=== PATIENT | female | born 1955 | race African-American/Black ===

== ENCOUNTER 2017-07-13 00:21 | Emergency (ER) | payer OTHER ==
[~2017-07-13] VITALS: Ht 165.1 cm; Wt 78.0 kg
[~2017-07-13 00:21] MED LIST: ASPI81TA82 PO; BACT800T5 PO; CEPH500C3 PO; ENAL5TAB PO; IRON18TA2 PO; VITA250L PO; ZOCO40TA PO
[2017-07-13 00:23] VITALS: BP 177/84; PULSE 94; RESP 16; TEMP 98.7; O2SAT 98
--- NOTE | 2017-07-13 02:02 | PD ---
HPI Chief Complaint: Flank/Kidney Pain Time Seen by Provider: 01:59 Travel History International Travel<30 days: No Contact w/Intl Traveler<30days: No Traveled to known affect area: No History of Present Illness HPI LEFT FLANK PAIN, RADIATING DOWN TO LEFT GROIN AREA, [place]ARP, 8/10, ONSET 4 DAYS AGO, WORSENING TONIGHT OVER PAST 1HR OR SO....DENIES FEVER/FREQUENCY/DYSURIA/ HEMATURIA PCP : CAN'T RECALL BUT IT WAS A [facility] DOCTOR ALL: NKDA PSHX: HYST, APPY PMHX: HTN PFSH Past Medical History Hx Anticoagulant Therapy: Yes (ASA) Cardiovascular Problems: Yes (HTN, [place]) High Cholesterol: Yes Chest Pain: Yes Cerebrovascular Accident: Yes Diminished Hearing: No Hypertension: Yes Seizures: Yes Menopausal: Yes Ovarian Cysts: Yes (MULTIPLE SX FOR CYSTS) Past Surgical History Appendectomy: Yes Hysterectomy: Yes (FULL) Social History Alcohol Use: Yes (rarely) Tobacco Use: Yes (1/3 PPD) Substance Use: No Allergies-Medications (Allergen,Severity, Reaction): Coded Allergies: No Known Allergies (Verified , 07/13/17) Reported Meds & Prescriptions Reported Meds & Active Scripts Active Reported Vitamin B-12 (Cyanocobalamin) 250 Mcg Tab 250 Mcg PO DAILY Enalapril (Enalapril Maleate) 5 Mg Tab 5 Mg PO DAILY Aspirin Low Dose (Aspirin) 81 Mg Chew 81 Mg CHEW DAILY Review of Systems Except as stated in HPI: all other systems reviewed are Neg Genitourinary: Positive: Flank Pain Physical Exam Narrative GENERAL: SKIN: Warm and dry. HEAD: Atraumatic. Normocephalic. EYES: Pupils equal and round. No scleral icterus. No injection or drainage. ENT: No nasal bleeding or discharge. Mucous membranes pink and moist. NECK: Trachea midline. No JVD. CARDIOVASCULAR: Regular rate and rhythm. RESPIRATORY: No accessory muscle use. Clear to auscultation. Breath sounds equal bilaterally. GASTROINTESTINAL: Abdomen soft, non-tender, nondistended MUSCULOSKELETAL: Extremities without clubbing, cyanosis, or edema. No obvious deformities. NEUROLOGICAL: Awake and alert. No obvious cranial nerve deficits. Motor grossly within normal limits. Five out of 5 muscle strength in the arms and legs. Normal speech. PSYCHIATRIC: Appropriate mood and affect; insight and judgment normal. Data Data Last Documented VS Vital Signs Date Time Temp Pulse Resp B/P (MAP) Pulse Ox O2 Delivery O2 Flow Rate FiO2 07/13/17 02:26 16 07/13/17 02:11 72 132/87 (102) 98 Room Air 07/13/17 00:23 98.7 Orders Orders Complete Blood Count With Diff (07/13/17 02:11) Comprehensive Metabolic Panel (07/13/17 02:11) Urinalysis - C+S If Indicated (07/13/17 02:11) Ct Abd/Pel W/O Iv Contrast (07/13/17 02:11) Ecg Monitoring (07/13/17 02:11) Iv Access Insert/Monitor (07/13/17 02:11) Morphine Inj (Morphine Inj) (07/13/17 02:15) Ondansetron Inj (Zofran Inj) (07/13/17 02:15) Sodium Chloride 0.9% Flush (Ns Flush) (07/13/17 02:15) Sodium Chlor 0.9% 1000 Ml Inj (Ns 1000 M (07/13/17 02:11) Lipase (07/13/17 02:11) Labs Laboratory Tests Test 07/13/17 02:10 White Blood Count 6.8 TH/MM3 Red Blood Count 3.92 MIL/MM3 Hemoglobin 13.1 GM/DL Hematocrit 38.7 % Mean Corpuscular Volume 98.7 FL Mean Corpuscular Hemoglobin 33.3 PG Mean Corpuscular Hemoglobin Concent 33.8 % Red Cell Distribution Width 14.1 % Platelet Count 267 TH/MM3 Mean Platelet Volume 8.2 FL Neutrophils (%) (Auto) 49.0 % Lymphocytes (%) (Auto) 41.7 % Monocytes (%) (Auto) 7.1 % Eosinophils (%) (Auto) 1.1 % Basophils (%) (Auto) 1.1 % Neutrophils # (Auto) 3.4 TH/MM3 Lymphocytes # (Auto) 2.8 TH/MM3 Monocytes # (Auto) 0.5 TH/MM3 Eosinophils # (Auto) 0.1 TH/MM3 Basophils # (Auto) 0.1 TH/MM3 CBC Comment DIFF FINAL Differential Comment Urine Color YELLOW Urine Turbidity CLEAR Urine pH 6.0 Urine Specific [place] 1.020 Urine Protein TRACE mg/dL Urine Glucose (UA) NEG mg/dL Urine Ketones TRACE mg/dL Urine Occult Blood NEG Urine Nitrite NEG Urine Bilirubin NEG Urine Urobilinogen LESS THAN 2.0 MG/DL Urine Leukocyte Esterase TRACE Urine RBC 1 /hpf Urine WBC 2 /hpf Urine Squamous Epithelial Cells 1 /hpf Urine Mucus FEW /lpf Microscopic Urinalysis Comment CULT NOT INDICATED Blood Urea Nitrogen 10 MG/DL Creatinine 0.73 MG/DL Random Glucose 72 MG/DL Total Protein 8.0 GM/DL Albumin 4.1 GM/DL Calcium Level 8.7 MG/DL Alkaline Phosphatase 81 U/L Aspartate Amino Transf (AST/SGOT) 95 U/L Alanine Aminotransferase (ALT/SGPT) 55 U/L Total Bilirubin 0.5 MG/DL Sodium Level 139 MEQ/L Potassium Level 4.2 MEQ/L Chloride Level 104 MEQ/L Carbon Dioxide Level 25.7 MEQ/L Anion Gap 9 MEQ/L Estimat Glomerular Filtration Rate 98 ML/MIN Lipase 265 U/L MDM Medical Decision Making Medical Screen Exam Complete: Yes Emergency Medical Condition: Yes Medical Record Reviewed: Yes Differential Diagnosis KIDNEY STONE V UTI V PYELONEPHRITIS V PNA V PTX Narrative Course UA DID NOT SHOW E/O UTI, CT NEG FOR STONES/PYELO/APPY//PNA/PTX...ALSO NO E/O ABNORMAL AORTIC DILATION NOTED Diagnosis Primary Impression: LEFT FLANK PAIN NOS Patient Instructions: Flank Pain (ED), General Instructions Scripts Tramadol (Ultram) 50 Mg Tab 50 MG PO Q6H Y for PAIN, #15 TAB 0 Refills Prov: René Camacho MD 07/13/17 Ciprofloxacin (Cipro) 500 Mg Tab 500 MG PO BID for Infection for 3 Days, #6 TAB 0 Refills Prov: René Camacho MD 07/13/17 Disposition: 01 DISCHARGE HOME Condition: Stable René Camacho MD Jul 13, 2017 02:02
[2017-07-13] MEDS ORDERED: ENAL5TAB PO (02:06)
[2017-07-13] MEDS ORDERED: ASPI81CH37 CHEW (02:06)
[2017-07-13] MEDS ORDERED: VITA250T5 PO (02:06)
[2017-07-13 02:11] VITALS: BP 132/87; PULSE 72; RESP 18; O2SAT 98
[2017-07-13] MEDS ORDERED: SODIUM CHLOR 0.9% 1000 ML INJ 1,000 ML IV ONE (02:11)
[2017-07-13] MEDS ORDERED: SODIUM CHLORIDE 0.9% FLUSH 10 ML FLUSH IVF PRN (02:15)
[2017-07-13] MEDS ORDERED: MORPHINE SULFATE 4 MG/ML INJ IV PUSH ONE (02:15)
[2017-07-13] MEDS ORDERED: ONDANSETRON HCL 4 MG/2 ML VIAL IV PUSH ONE (02:15)
[2017-07-13 02:26] VITALS: RESP 16
[2017-07-13 02:32] LABS: EOSINOPHIL % 1.1 % (0.0-4.0); HEMATOCRIT 38.7 % (35.0-46.0); HEMO FLAGS DIFF FINAL; LYMPH % 41.7 % (9.0-44.0); MEAN CELL VOLUME 98.7 FL (80.0-100.0); MEAN CORPUSCULAR HEMOGLOBIN 33.3 PG (27.0-34.0); MEAN CORPUSCULAR HGB CONC 33.8 % (32.0-36.0); MONO % 7.1 % (0.0-8.0); PLATELET COUNT 267 TH/MM3 (150-450); RED BLOOD COUNT 3.92 MIL/MM3 (4.00-5.30); RED CELL DISTRIBUTION WIDTH 14.1 % (11.6-17.2); WHITE BLOOD COUNT 6.8 TH/MM3 (4.0-11.0)
[2017-07-13 02:33] LABS: AUTOMATED NEUTROPHIL # 3.4 TH/MM3 (1.8-7.7); BASOPHIL # 0.1 TH/MM3 (0-0.2); BASOPHIL % 1.1 % (0.0-2.0); EOSINOPHIL # 0.1 TH/MM3 (0-0.4); LYMPHOCYTE # 2.8 TH/MM3 (1.0-4.8)
[2017-07-13 02:41] LABS: BLOOD, URINE NEG (NEG); COMMENT (UR) CULT NOT INDICATED; CULTURE IF INDICATED CULT NOT INDICATED; GLUCOSE,URINE NEG (NEG); KETONE, URINE TRACE mg/dL (NEG); MUCUS URINE FEW /lpf (OCC); NITRITE,URINE NEG (NEG); SQUAMOUS EPITHELIAL CELL URINE 1 /hpf (0-5); URINE COLOR YELLOW (YELLW/STRAW)
[2017-07-13 02:53] LABS: ALKALINE PHOSPHATASE 81 U/L (45-117); TOTAL BILIRUBIN ADULT 0.5 MG/DL (0.2-1.0)
[2017-07-13 03:14] LABS: ALT (GPT) 55 U/L (10-53); ANION GAP 9 MEQ/L (5-15); AST (GOT) 95 U/L (15-37); BICARBONATE 25.7 MEQ/L (21.0-32.0); CHLORIDE 104 MEQ/L (98-107); GLOMERULAR FILTRATION RATE 98 ML/MIN (>89); SODIUM (NA) 139 MEQ/L (136-145)
[2017-07-13 03:18] LABS: BLOOD UREA NITROGEN 10 MG/DL (7-18); POTASSIUM 4.2 MEQ/L (3.5-5.1)
--- NOTE | 2017-07-13 04:48 | RADRPT ---
EXAM DATE/TIME: 07/13/2017 03:23 [facility] COMPARISON: No previous studies available for comparison. INDICATIONS : Left flank pain extending into left groin. ORAL CONTRAST: No oral contrast ingested. RADIATION DOSE: 14.35 CTDIvol (mGy) MEDICAL HISTORY : Seizures. Myocardial infarction. Hypertension.Ovarian cysts. CVA. SURGICAL HISTORY : Hysterectomy. Appendectomy. ENCOUNTER: Initial ACUITY: 3 days PAIN SCALE: 4/10 LOCATION: Left flank TECHNIQUE: Volumetric scanning of the abdomen and pelvis was performed. Using automated exposure control and ad justment of the mA and/or kV according to patient size, radiation dose was kept as low as reasonably achievable to obtain optimal diagnostic quality images. DICOM format image data is available electro nically for review and comparison. FINDINGS: Examination of the lung bases demonstrates no abnormality. No pleural fluid is identified. No pulmona ry nodules are present. There is hypodensity within the liver compatible with cyst measuring 2 cm in segment 6The spleen is normal in size and free of focal defects. The gallbladder and pancreas are unr emarkable. No intrahepatic or extrahepatic ductal dilatation is seen. The adrenal glands are unremark able. The right kidney is unremarkable. There is a single simple cyst in the left kidney measuring 1 0 mm in the midpole. No renal stones are identified. Examination of the pelvis demonstrates no evidence of free fluid or pelvic mass. No abnormally enlarg ed inguinal or retroperitoneal lymph nodes are present. The bladder is unremarkable. CONCLUSION: 1. No evidence of acute abdominal or pelvic process. No masses are identified. Rc Lux MD on July 13, 2017 at 4:42 Board Certified Radiologist. This report was verified electronically.
[2017-07-13] MEDS ORDERED: ULTR50TA5 PO (05:09)
[2017-07-13] MEDS ORDERED: CIPR-9 PO (05:09)
[2017-07-13 05:36] VITALS: BP 140/85
== END 2017-07-13 06:01 | disposition home or self-care (01) ==
LOC: NEPC 00:21
DX: R10.9 Unspecified abdominal pain (principal); I10 Essential (primary) hypertension; Z86.73 Personal history of transient ischemic attack (TIA), and cerebral infarction without residual deficits; F17.200 Nicotine dependence, unspecified, uncomplicated
CPT/HCPCS: 74176; 80053; 81001; 83690; 85025; 96361; 96374; 96375; 99285; J2270; J2405; J7030

== ENCOUNTER 2017-08-14 13:54 | Emergency (ER) | payer OTHER ==
[~2017-08-14] VITALS: Ht 162.6 cm; Wt 80.0 kg
[~2017-08-14 13:54] MED LIST changes: +ASPI81CH6 CHEW; -ASPI81TA82 PO; -BACT800T5 PO; -CEPH500C3 PO; +CIPR-9 PO; -IRON18TA2 PO; +TRAM50 PO; -VITA250L PO; +VITA250T5 PO; -ZOCO40TA PO
[2017-08-14 13:55] VITALS: BP 168/88; PULSE 89; RESP 14; TEMP 98.4; O2SAT 100
--- NOTE | 2017-08-14 17:23 | PD ---
HPI Chief Complaint: Skin Problem Time Seen by Provider: 17:08 Travel History International Travel<30 days: No Contact w/Intl Traveler<30days: No Traveled to known affect area: No History of Present Illness HPI 61y female presents to emergency department complaining of right upper leg pain for 1 day. States she just woke up with the pain and developed increased swelling of the area over the day. Patient thinks that she got bit by an insect however she does not recall actually being bit by an insect. She saw her primary care physician today and they ordered an x-ray and labs. She does not know the results of this yet. Patient denies radiation of pain but does have pain with sitting. She also has pain with walking. She requests pain medication. Denies trauma or falls. PFSH Past Medical History Hx Anticoagulant Therapy: Yes (ASA) Cardiovascular Problems: Yes (HTN, [place]) High Cholesterol: Yes Chest Pain: Yes Cerebrovascular Accident: Yes Diminished Hearing: No Hypertension: Yes Seizures: Yes ?: Not Menopausal: Yes Ovarian Cysts: Yes (MULTIPLE SX FOR CYSTS) Past Surgical History Appendectomy: Yes Hysterectomy: Yes Social History Alcohol Use: Yes (rarely) Tobacco Use: Yes (/ PPD) Substance Use: No Allergies-Medications (Allergen,Severity, Reaction): Coded Allergies: No Known Allergies (Verified , 07/13/17) Reported Meds & Prescriptions Reported Meds & Active Scripts Active Bactrim DS (Sulfamethoxazole-Trimethoprim) 800-160 Mg Tab 1 Tab PO BID Ibuprofen 600 Mg Tab 600 Mg PO TID 5 Days Ultram (Tramadol HCl) 50 Mg Tab 50 Mg PO Q6H PRN Cipro (Ciprofloxacin HCl) 500 Mg Tab 500 Mg PO BID 3 Days Reported Vitamin B-12 (Cyanocobalamin) 250 Mcg Tab 250 Mcg PO DAILY Enalapril (Enalapril Maleate) 5 Mg Tab 5 Mg PO DAILY Aspirin Low Dose (Aspirin) 81 Mg Chew 81 Mg CHEW DAILY Review of Systems Except as stated in HPI: all other systems reviewed are Neg Physical Exam Narrative GENERAL: Well-nourished, well-developed patient. SKIN: Focused skin assessment warm/dry. HEAD: Normocephalic. EYES: No scleral icterus. No injection or drainage. NECK: Supple, trachea midline. No JVD or lymphadenopathy. CARDIOVASCULAR: Regular rate and rhythm without murmurs, gallops, or rubs. RESPIRATORY: Breath sounds equal bilaterally. No accessory muscle use. GASTROINTESTINAL: Abdomen soft, non-tender, nondistended. MUSCULOSKELETAL: No cyanosis, or edema. Right leg/hip- TTP over trochanteric bursa with ecchymosis. It appears as if she brushed up against an object- multiple linear lines towards the posterior aspect of the ecchymosis consistent with trauma. No central area of fluctuance, no obvious induration. POC ultrasound demonstrated a pattern consistent with a hematoma, mainly hypoechoic area surrounding trochanteric bursa. no lymphangiopathic spread. BACK: Nontender without obvious deformity. No CVA tenderness. Data Data Last Documented VS Vital Signs Date Time Temp Pulse Resp B/P (MAP) Pulse Ox O2 Delivery O2 Flow Rate FiO2 08/14/17 18:07 08/14/17 13:55 98.4 89 14 100 Orders Orders Acetamin-Hydrocod 325-5 Mg ([place] 5-325 (08/14/17 17:30) Ed Discharge Order (08/14/17 17:42) MDM Medical Decision Making Medical Screen Exam Complete: Yes Emergency Medical Condition: Yes Differential Diagnosis Cellulitis versus contusion versus abrasion Narrative Course 61y female presents to emergency department complaining of right upper leg pain for 1 day. States she just woke up with the pain and developed increased swelling of the area over the day. Patient thinks that she got bit by an insect however she does not recall actually being bit by an insect. She saw her primary care physician today and they ordered an x-ray and labs. She does not know the results of this yet. Patient denies radiation of pain but does have pain with sitting. She also has pain with walking. She requests pain medication. Vital signs stable Patient saw primary care physician today and obtain an x-ray with labs. She was sent to the ED for possible infection and pain medication. Physical exam consistent with bursitis and hematoma. See notes. Because of the quantity of fluid, concerned about developing an infection, we' ll prescribe antibiotics. Bactrim DS. Pain control with ibuprofen. Pt to follow up with PCP. Return for worsening symptoms Diagnosis Primary Impression: Trochanteric bursitis, right hip Additional Impression: Hematoma Referrals: Primary Care Physician Patient Instructions: General Instructions Additional Instructions: Follow-up a primary care physician Thursday. If your pain persists or worsens return to the emergency department Take medications as prescribed Scripts Sulfamethoxazole-Trimethoprim (Bactrim DS) 800-160 Mg Tab 1 TAB PO BID for Infection, #14 TAB 0 Refills Prov: Lionel Larson MD 08/14/17 Ibuprofen (Ibuprofen) 600 Mg Tab 600 MG PO TID for Arthritis Pain for 5 Days, TAB 0 Refills Prov: Lionel Larson MD 08/14/17 Disposition: 01 DISCHARGE HOME Condition: Stable Robyn Little Aug 14, 2017 17:23
[2017-08-14] MEDS ORDERED: ACETAMINOPHEN/HYDROcodone 325 MG/5 MG TAB PO ONE (17:30)
[2017-08-14] MEDS ORDERED: BACT800T5 PO (17:42)
[2017-08-14] MEDS ORDERED: IBUP-232 PO (17:42)
== END 2017-08-14 18:20 | disposition home or self-care (01) ==
LOC: NEPK 13:54
DX: M70.61 Trochanteric bursitis, right hip (principal); I10 Essential (primary) hypertension; F17.200 Nicotine dependence, unspecified, uncomplicated
CPT/HCPCS: 99283